=== PATIENT | female | born 1985 | race Caucasian/White ===

== ENCOUNTER → 2020-06-01 | Day surgery (SDC) | payer OTHER ==
[~2020-06-01] MED LIST: Ketamine 500 mg/10 ML MDV ONE; Ketorolac 30 MG/ML SDV IVPUSH SCH; Ketorolac 30 MG/ML SDV ONE; Lactated Ringers 1,000 ML IV SCH; Lidocaine 1% 4 ML ONE; Lidocaine 1%/Sod Bicarbonate in NS 8.4% 1 ML Syringe IDERM PRN; Midazolam 1 MG/ML 2 ML SDV ONE; Ondansetron 4 MG/2 ML SDV IVPUSH PRN; Ondansetron 4 MG/2 ML SDV ONE; Propofol 200 MG/20 ML SDV ONE; Sodium Chloride 0.9% 10 ML Syringe FLUSH PRN; ceFAZolin 1 GM Vial ONE; fentaNYL 100 MCG/2 ML SDV ONE
--- NOTE | 2020-06-01 08:04 | PCM.PREANE ---
Preanesthetic Assessment - Procedure Proposed Procedure: D&C and Hysteroscopy - Anesthesia/Transfusion/Family Hx Anesthesia History: Prior Anesthesia Without Reaction ([place] teeth) Family History of Anesthesia Reaction: No - Review of Systems General: No Symptoms Pulmonary: No Symptoms (Former smoker quit 2011) Cardiovascular: No Symptoms Gastrointestinal: No Symptoms Neurological: No Symptoms Other: Reports: None (Anemia) - Physical Assessment NPO Status Date: 05/31/20 NPO Status Time: 20:00 Vital Signs: Last Vital Signs Temp 36.9 C 06/01/20 07:35 Pulse 74 06/01/20 07:35 Resp 16 06/01/20 07:35 BP 124/77 06/01/20 07:35 Pulse Ox 99 06/01/20 07:35 Height: 1.68 m Weight: 74.843 kg ASA Class: 1 Mental Status: Alert & Oriented x3 Airway Class: Mallampati = 2 Dentition: Reports: Normal Dentition Thyro-Mental Finger Breadths: 3 Mouth Opening Finger Breadths: 3 ROM/Head Extension: Full Lungs: Clear to Auscultation, Normal Respiratory Effort Cardiovascular: Regular Rate, Regular Rhythm - Allergies Allergies/Adverse Reactions: Allergies Allergy/AdvReac Type Severity Reaction Status Date / Time No Known Allergies Allergy Verified 05/31/20 13:31 - Acknowledgements Anesthesia Type Planned: General Anesthesia, MAC Pt an Appropriate Candidate for the Planned Anesthesia: Yes Alternatives and Risks of Anesthesia Discussed w Pt/Guardian: Yes Pt/Guardian Understands and Agrees with Anesthesia Plan: Yes PreAnesthesia Questionnaire HEENT History: Reports: Impaired Vision, Other (See Below) Other HEENT History: wears contacts, impacted cerumen Cardiovascular History: Reports: None Respiratory History: Reports: None Gastrointestinal History: Reports: None Genitourinary History: Reports: None CUSTOMER SUPPORT REPRESENTATIVE History: Reports: Other (See Below) Other OB/BYN History: ovarian cyst, dysmenorrhea, menorrhagia, endometrial polyp, hypermenorrhea, intermenstrual bleeding Musculoskeletal History: Reports: Other (See Below) Other Musculoskeletal History: acute back pain, sciatica Neurological History: Reports: Other (See Below) Other Neuro History: dizziness Psychiatric History: Reports: Other (See Below) Other Psychiatric History: fatigue Endocrine/Metabolic History: Reports: None Hematologic History: Reports: Anemia Immunologic History: Reports: None Oncologic (Cancer) History: Reports: None Dermatologic History: Reports: Other (See Below) Other Dermatologic History: hair loss, rash, skin tag - Infectious Disease History Infectious Disease History: Reports: None - Past Surgical History Head Surgeries/Procedures: Reports: None HEENT Surgical History: Reports: None Cardiovascular Surgical History: Reports: None Respiratory Surgical History: Reports: None GI Surgical History: Reports: EGD Female Surgical History: Reports: None Male Surgical History: Reports: None Endocrine Surgical History: Reports: None Neurological Surgical History: Reports: None Musculoskeletal Surgical History: Reports: None Oncologic Surgical History: Reports: None Dermatological Surgical History: Reports: None - SUBSTANCE USE Tobacco Use Status *Q: Former Tobacco User Recreational Drug Use History: No - HOME MEDS Home Medications: Home Meds Cholecalciferol (Vitamin D3) [Vitamin D3] 2,000 unit PO DAILY 05/31/20 [History] Ferrous Sulfate [Iron] 650 mg PO DAILY 05/31/20 [History] Magnesium Oxide/Magnesium [Magnesium] 300 mg PO DAILY 05/31/20 [History] Multivitamin 1 tab PO DAILY 05/31/20 [History] - CURRENT (IN HOUSE) MEDS Current Meds: Current Medications Lactated Ringer's (Ringers, Lactated) 1,000 mls @ 125 mls/hr IV ASDIRECTED ALONZO Stop: 06/01/20 23:00 Lidocaine/Sodium Bicarbonate (Buffered Lidocaine 1% In Ns 8.4%) 0.25 ml IDERM ONETIME PRN PRN Reason: Prior to IV Start Stop: 06/01/20 18:00 Sodium Chloride (Saline Flush) 10 ml FLUSH ASDIRECTED PRN PRN Reason: Keep Vein Open Stop: 06/01/20 18:00 Discontinued Medications Fentanyl (Sublimaze) Confirm Administered Dose 100 mcg .ROUTE .STK-MED ONE Stop: 06/01/20 06:52 Lidocaine HCl (Xylocaine-Mpf 1%) Confirm Administered Dose 4 mls @ as directed .ROUTE .STK-MED ONE Stop: 06/01/20 06:52 Ketamine HCl (Ketalar) Confirm Administered Dose 500 mg .ROUTE .STK-MED ONE Stop: 06/01/20 06:55 Midazolam HCl (Versed 1 Mg/Ml) Confirm Administered Dose 2 mg .ROUTE .STK-MED ONE Stop: 06/01/20 06:52 Ondansetron HCl (Zofran) Confirm Administered Dose 4 mg .ROUTE .STK-MED ONE Stop: 06/01/20 06:52 Propofol (Diprivan 20 Ml) Confirm Administered Dose 200 mg .ROUTE .STK-MED ONE Stop: 06/01/20 06:52
--- NOTE | 2020-06-01 10:02 | PCM48HPAN ---
Post Anesthesia Note - EVALUATION WITHIN 48HRS OF ANESTHETIC Vital Signs in Normal Range: Yes Patient Participated in Evaluation: Yes Respiratory Function Stable: Yes Airway Patent: Yes Cardiovascular Function Stable: Yes Hydration Status Stable: Yes Pain Control Satisfactory: Yes Nausea and Vomiting Control Satisfactory: Yes Mental Status Recovered: Yes (no complaints) Vital Signs: Last Vital Signs Temp 98.5 F 06/01/20 07:35 Pulse 74 06/01/20 07:35 Resp 16 06/01/20 07:35 BP 124/77 06/01/20 07:35 Pulse Ox 99 06/01/20 07:35 0958 113/69 72 16 98% 98.7
--- NOTE | 2020-06-01 10:10 | PCM.OPNOTE ---
- General Post-Op/Procedure Note Date of Surgery/Procedure: 06/01/20 Operative Procedure(s): Hysteroscopy, dilation and curettage Findings: Patient is noted to have a uterus that sounded to 9 and half centimeters. Uterus is posteriorly positioned in a retroflexed fashion. On the posterior right aspect of the uterus mid way through the endometrial cavity there was a polypoid structure approximately 8 to 10 mm in dimension. It is fleshy in appearance and benign in nature. Tubal ostia noted. No other abnormalities present. Bimanual exam showed no evidence of adnexal abnormalities. Pre Op Diagnosis: 1. Menorrhagia. 2. Thickened endometrium. 3. Probable end ometrial polyp Post-Op Diagnosis: Same Anesthesia Technique: MAC Primary Surgeon: Kevin Monsalve Anesthesia Provider: Juvenal Garcia Woodworking Belt Sander: Jose F Li Pathology: Endometrial curettings consistent with endometrial polyp EBL in mLs: 10 Complications: None Condition: Good Free Text/Narrative:: Surgery duration: 12 minutes Procedure: The patient is taking the operative placed in a supine position on the operating table. She received 2 g of Ancef preoperatively for infection prophylaxis and had sequential compression stockings in place for DVT prophylaxis. Patient was given MAC for anesthesia. She is placed in a dorsal lithotomy position and prepped and draped in usual fashion. An exam under anesthesia was performed. Findings as described above. A weighted speculum was placed in the vagina. Cervix is visualized. It was grasped anteriorly with a single-tooth tenaculum. Uterus was then sounded to a depth of 10-1/2 cm. It is from the anterior, mid position. The cervix was dilated to entrance of a 5 mm 12 rigid hysteroscope. This was placed without problem and normal saline was used as a distending medium. The endometrial cavity was visualized. Findings as described above. Decision was made to proceed with polypectomy. Polyp forceps was introduced and polyps were removed. After this is performed a D&C was performed. Moderate amount tissue was obtained. Minimal bleeding was encountered. Hysteroscope was then placed back into the endometrial cavity. Blood was flushed out and the findings were consistent relatively normal-appearing endometrial cavity. At this point the scope was removed. The vagina was cleared of old blood, the cervix was released and the weighted speculum was removed. Patient was returned to supine position and awakened from general anesthesia. She tolerated the procedure well and operating room in good condition.
== END | disposition home or self-care (01) ==
LOC: JD.SDS 07:32
PROVIDERS: ATTEND Obstetrics & Gynecology
DX: N84.0 Polyp of corpus uteri (principal); Z79.899 Other long term (current) drug therapy; Z87.891 Personal history of nicotine dependence
CPT/HCPCS: 58558; J0690; J1885; J2001; J2250; J2405; J2704; J3010; J7120